=== PATIENT | female | born 1955 | race Caucasian/White ===

== ENCOUNTER 2016-11-18 17:09 | Emergency (ER) | payer OTHER ==
[~2016-11-18] VITALS: Ht 162.6 cm; Wt 102.1 kg
[~2016-11-18 17:09] MED LIST: COZAAR 50MG TAB50 MG PO; HYDROCODONE/ACE1 TA1 PO; LEVOTHYROXINE0.05 MG PO; LOPRESSOR 25MG25 MG PO; MAGNESIUM OXID400 MG PO; METFORMIN HCL500 MG PO; SIMVASTATIN40 MG PO
--- NOTE | 2016-11-18 18:56 | ED GI/GU/ABDOMINAL COMPLAINT ---
History of Present Illness General Chief Complaint: Abdominal Pain/Flank Pain Stated Complaint: ABD PAIN X 1 DAY Source: patient Exam Limitations: no limitations Vital Signs & Intake/Output Vital Signs & Intake/Output Vital Signs Date Time Temp Pulse Resp B/P Pulse O2 O2 Flow FiO2 Ox Delivery Rate 11/188 98.3 74 16 142/74 100 Room Air 11/18 2122 97.2 84 16 136/60 95 Room Air 11/18 1956 98.3 93 16 148/87 100 Room Air 11/18 1851 99 Room Air 11/18 1711 98.3 116 18 154/106 96 Room Air Allergies Coded Allergies: lisinopril (Mild, COUGH 11/18/16) Reconcile Medications HYDROCODONE/ACETAMINOPHEN (Hydrocodon-Acetaminophen 5-325) 1 TAB TAB 1-2 TAB PO Q8P PRN PAIN Levothyroxine Sodium 0.05 MG TAB 1 TAB PO DAILY THYROID (Reported) Losartan (Cozaar) 50 MG TAB 1 TAB PO DAILY BP (Reported) Magnesium Oxide 400 MG TAB 1 TAB PO DAILY SUPPLEMENT (Reported) Metformin Hydrochloride (Metformin HCl) 500 MG TAB 1 TAB PO BID DM (Reported) Metoprolol Tartrate (Lopressor) 25 MG TAB 1 TAB PO BID BP (Reported) Ondansetron HCl (Zofran) 4 MG TABLET 1 ODT PO Q6-8P PRN NAUSEA Oxycodone HCl/Acetaminophen (Percocet 5-325 MG Tablet) 5 MG-325 MG TABLET 1 TAB PO Q4-6 PRN PAIN Simvastatin 40 MG TAB 1 TAB PO QPM CHOLESTEROL (Reported) Triage Note: PT TO TRIAGE WITH C/O CONSTANT UPPER ABDOMINAL PAIN /10 SINCE YESTERDAY. PT DENIES N/V, REPORTS DIARRHEAx1 YESTERDAY. VSS. PT AFEBRILE IN TRIAGE. PT DENIES CHEST PAIN,SOB,URINARY S/S. HX OF PANCREATITIS,DIABETES,HTN,HIGH CHOL. Triage Nurses Notes Reviewed? yes ? N Is pt currently ? No Onset: Gradual Duration: waxing and waning Timing: recent history Quality/Severity: fullness, moderate Severity Numbers: 5 Location: epigastric Radiation: back HPI: Patient is a 61-year-old female with a past medical history of type 2 diabetes, pancreatitis, hyperlipidemia and hypertension who presents emergency room with a 27 hour gradual onset of waxing and waning epigastric pain and abdominal distention. Patient has mild nausea and states that eating and drinking makes epigastric pain worse. Last bowel movement was 2 days ago no blood no melena noted. Patient is status post remote cholecystectomy. Patient has mild ideation to her back and states feelings feel similar to previous pancreatitis. Denies any significant alcohol use Past History Travel History Traveled to [place] past 21 day No Medical History Any Pertinent Medical History? see below for history Cardiovascular: hypertension, hyperlipidemia Gastrointestinal: pancreatitis Endocrine: diabetes History of MRSA: No History of VRE: No History of CDIFF: No Influenza Vaccine: 06/28/13 Surgical History Surgical History: cholecystectomy, Psychosocial History Who do you live with Significant Other Services at Home None What is your primary language Latvian Tobacco Use: Never used Family History Family History, If Any: MOTHER FH: aortic stenosis FH: congestive heart failure FH: CVA (cerebrovascular accident) FATHER FH: CABG (coronary artery bypass surgery) FH: colon cancer DAUGHTER FHx: SVT (supraventricular tachycardia) Hx Contributory? No Review of Systems Review of Systems Constitutional: Reports: no symptoms. EENTM: Reports: no symptoms. Respiratory: Reports: no symptoms. Cardiovascular: Reports: no symptoms. GI: Reports: see HPI, abdominal pain, nausea. Genitourinary: Reports: no symptoms. Musculoskeletal: Reports: no symptoms. Skin: Reports: no symptoms. Neurological/Psychological: Reports: no symptoms. Hematologic/Endocrine: Reports: no symptoms. Immunologic/Allergic: Reports: no symptoms. All Other Systems: Reviewed and Negative Physical Exam Physical Exam General Appearance: comfortable, obese Gastrointestinal: normal bowel sounds, soft, MODERATE EPIGASTRIC POINT TENDERNESS NOTED, MILD RIGHT LOWER QUADRANT POINT TENDERNESS NO PERITONEAL SIGNS NO REBOUND TENDERNESS Comments: HEENT: Normal EENT exam Neck: Supple, no lymphadenopathy, normal range of motion without pain or tenderness Back: Nontender, no CVA tenderness. Cardiovascular: Regular rate and rhythms no murmurs rubs or gallops, normal JVP Respiratory: Chest nontender. No respiratory distress.breath sounds clear to auscultation bilaterally Extremity: No edema, no calf tenderness to palpation, normal and equal pulses. Neuro: Alert oriented x3, motor sensory normal, Skin: No appreciable rash on exposed skin, skin is warm and dry. Psych: Mood and affect is normal, memory and judgment is normal. Core Measures ACS in differential dx? No Severe Sepsis Present: No Septic Shock Present: No Progress Differential Diagnosis: AAA, AMI, appendicitis, biliary colic, bowel obstruction , colon cancer, diverticulitis, endometritis, esophageal varices, gastritis, hepatitis, hernia, hemorrhoids, ischemic bowel, inflamm bowel dis, kidney stone, Lola-Emma tear, ovarian cyst, ovarian torsion, pancreatitis, PID/cervicitis, peptic ulcer, PUD/GERD, perforated viscous, SBO, UTI/pyelo Plan of Care: Orders Procedure Date/time Status DIRECT BILIRUBIN 11/18 1945 Complete PARTIAL THROMBOPLASTIN TIME 11/18 1857 Complete PROTHROMBIN TIME 11/18 1857 Complete LIPASE 11/18 1856 Complete COMPREHENSIVE METABOLIC PANEL 11/18 1856 Complete CBC WITHOUT DIFFERENTIAL 11/18 1856 Complete AMYLASE 11/18 1856 Complete Laboratory Tests 11/18/161945: Anion Gap 12, Estimated GFR > 60, BUN/Creatinine Ratio 18.3, Glucose 141 H, Calcium 9.4, Total Bilirubin 1.8 H, Direct Bilirubin 0.4, AST 27, ALT 37, Alkaline Phosphatase 111, Total Protein 7.6, Albumin 4.1, Globulin 3.5, Albumin/ Globulin Ratio 1.2, Amylase 43, Lipase 68, PT 11.6, INR 1.11, APTT 37, CBC w Diff NO MAN DIFF REQ, RBC 5.11, MCV 92.8, MCH 31.3 H, RDW 13.4, MPV 8.2, Gran % 72.4, Lymphocytes % 19.1 L, Monocytes % 7.4, Eosinophils % 0.8, Basophils % 0.3 , Absolute Granulocytes 8.8 H, Absolute Lymphocytes 2.3, Absolute Monocytes 0.9 H, Absolute Eosinophils 0.1, Absolute Basophils 0, PUBS MCHC 33.7 11/18/161857: Direct Bilirubin Cancelled Patient on this examination was in no apparent distress patient was given IV morphine and IV Zofran with improvement of her symptoms. CT scan currently is pending. CT scan was resulted noting concerns of inflammatory findings around the pancreas however patient's pancreatic enzymes were unremarkable. Patient also had complete resolution of presenting complaints of pain and nausea. Patient was by mouth challenged and could tolerate this. 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 Radiology Impression: SEE COMMENTS Initial ED EKG: none Comments: PATIENT: MEÑO ALMAZAN PRESENT AGE: 61 PATIENT ACCOUNT NO: [id number] : 54 LOCATION: [facility] ORDERING PHYSICIAN: JAI SPAULDING SERVICE DATE: 11/18/16 EXAM TYPE: CAT - CT ABD & PELVIS W IV CONTRAST EXAMINATION: CT ABDOMEN AND PELVIS WITH CONTRAST CLINICAL INFORMATION: Epigastric and right lower quadrant abdominal pain. COMPARISON: CT abdomen and pelvis without contrast 08/17/2014. TECHNIQUE: Multidetector volumetric imaging was performed of the abdomen and pelvis before and after the IV administration of 95 mL of Optiray 320 intravenous contrast. Sagittal and coronal reformatted images were obtained on the technologist's workstation. DLP: 1071 mGy-cm FINDINGS: LUNG BASES: The visualized lung bases are unremarkable. LIVER, GALLBLADDER, AND BILIARY TREE: There is diffuse low-attenuation of the liver parenchyma, indicative of diffuse hepatic steatosis. The liver is otherwise normal in size and contour. Redemonstrated are several cystic lesions within the caudate lobe as well as the left hepatic lobe, measuring approximately 2.1 x 2.2 cm and 0.8 cm respectively; previously, 1.6 x 1.7 cm and 0.7 cm respectively on a prior CT of the abdomen and pelvis dating back to 2013. The gallbladder is surgically absent. No intrahepatic blurry ductal dilatation is identified. There is stable mild prominence of the common bile duct, without visible intraductal stones. PANCREAS: Redemonstrated is mild generalized pancreatic atrophy and fatty infiltration of the pancreas. Of note, there are peripancreatic inflammatory changes surrounding the distal pancreatic body and tail. This could reflect a focal acute pancreatitis. No peripancreatic fluid collections are identified. SPLEEN: Unremarkable. ADRENAL GLANDS: Unremarkable. KIDNEYS AND URETERS: The kidneys are normal in size and enhance symmetrically, without solid parenchymal lesions. Incidental note is made of a 1.2 cm hypoattenuating lesion within the upper pole of the left kidney, favored to represent a small simple renal cortical cyst. No enhancing renal masses are identified. A 5 mm nonobstructing stone is present within the lower pole of the right kidney. No ureteral stones are identified and there is no hydroureteronephrosis of either kidney or renal collecting system. Incidental note is made of several left-sided parapelvic cysts. BLADDER: Unremarkable. GASTROINTESTINAL TRACT: Normal anatomic orientation of the stomach relative to the duodenum. Normal caliber of abdominal and pelvic bowel loops, without evidence of obstruction or ileus. No circumferential bowel wall thickening with surrounding inflammatory changes to suggest an underlying infectious or inflammatory enterocolitis. Normal-appearing appendix within the right lower quadrant of the abdomen. No organizing intra-abdominal fluid collections or free intraperitoneal air. ABDOMINAL WALL: No significant hernia is appreciated. LYMPH NODES: No significant abdominal or pelvic adenopathy. VASCULAR: Patent abdominal vasculature. Normal course and caliber of the abdominal aorta and its branching vessels, without aneurysmal dilatation. Redemonstrated are prominent bilateral gonadal veins. PELVIC VISCERA: Unremarkable. OSSEOUS STRUCTURES: No acute osseous abnormality. No visible destructive osseous lesions. Normal alignment of the imaged thoracolumbar spine. IMPRESSION: 1. Mild peripancreatic inflammatory changes surrounding the distal pancreatic body and tail. This could reflect an acute focal pancreatitis. Correlate with pancreatic enzyme levels. 2. Diffuse hepatic steatosis. 3. Nephrolithiasis of the right kidney. No ureteral or bladder stones and no hydroureteronephrosis of either kidney or renal collecting system. Departure Departure Disposition: HOME OR SELF CARE Condition: Stable Clinical Impression Primary Impression: Abdominal pain Secondary Impressions: Pancreatitis Referrals: GINO ARCHIBALD,MARY Kam (PCP/Family) MARK ARCHIBALD,HIRAM Alexis Additional Instructions: As discussed begin [id number] ibuprofen for pain and inflammation and begin the prescription of Percocet for breakthrough pain relief. Begin a 24- hour clear liquid and bland diet to rest your bowels. Prescription is waiting a [facility] pharmacy. Tomorrow please follow-up with your established registry np Dr. Joyce. If symptoms worsen return to emergency room. Departure Forms: Customer Survey General Discharge Information Prescriptions: Current Visit Scripts Oxycodone HCl/Acetaminophen (Percocet 5-325 MG Tablet) 1 TAB PO Q4-6 PRN PAIN #12 TAB Ondansetron HCl (Zofran) 1 ODT PO Q6-8P PRN NAUSEA #15 TAB
[2016-11-18 20:21] LABS: ABSOLUTE BASOPHIL COUNT 0 /CUMM (0.0-0.2); ABSOLUTE EOSINOPHIL COUNT 0.1 /CUMM (0.0-0.7); ABSOLUTE GRANULOCYTE CT 8.8 /CUMM (1.4-6.5); ABSOLUTE LYMPH COUNT 2.3 /CUMM (1.2-3.4); ABSOLUTE MONOCYTE COUNT 0.9 /CUMM (0.10-0.60); BASOPHIL % 0.3 % (0.0-2.0); EOSINOPHIL % 0.8 % (0-5); GRANULOCYTE % 72.4 % (42.2-75.2); HEMATOCRIT 47.4 % (37-47); MEAN CORPUSCULAR HGB 31.3 PG (27.0-31.0); MEAN CORPUSCULAR HGB CONC 33.7 G/DL (33.0-37.0); MEAN CORPUSCULAR VOLUME 92.8 FL (81.0-99.0); MEAN PLATELET VOLUME 8.2 FL (7.4-10.4); PLATELET COUNT 206 /CUMM (130-400); RBC DISTRIBUTION WIDTH 13.4 % (11.5-14.5); RED BLOOD CELL CT 5.11 /CUMM (4.20-5.40); WHITE BLOOD CELL COUNT 12.1 /CUMM (4.8-10.8)
[2016-11-18 20:31] LABS: PT 11.6 SEC (9.4-12.5); PTT 37 SEC (25-37)
--- NOTE | 2016-11-18 21:27 | CT SCAN REPORT ---
EXAMINATION: CT ABDOMEN AND PELVIS WITH CONTRAST CLINICAL INFORMATION: Epigastric and right lower quadrant abdominal pain. COMPARISON: CT abdomen and pelvis without contrast 08/17/2014. TECHNIQUE: Multidetector volumetric imaging was performed of the abdomen and pelvis before and after the IV administration of 95 mL of Optiray 320 intravenous contrast. Sagittal and coronal reformatted images were obtained on the technologist's workstation. DLP: 1071 mGy-cm FINDINGS: LUNG BASES: The visualized lung bases are unremarkable. LIVER, GALLBLADDER, AND BILIARY TREE: There is diffuse low-attenuation of the liver parenchyma, indicative of diffuse hepatic steatosis. The liver is otherwise normal in size and contour. Redemonstrated are several cystic lesions within the caudate lobe as well as the left hepatic lobe, measuring approximately 2.1 x 2.2 cm and 0.8 cm respectively; previously, 1.6 x 1.7 cm and 0.7 cm respectively on a prior CT of the abdomen and pelvis dating back to 2013. The gallbladder is surgically absent. No intrahepatic blurry ductal dilatation is identified. There is stable mild prominence of the common bile duct, without visible intraductal stones. PANCREAS: Redemonstrated is mild generalized pancreatic atrophy and fatty infiltration of the pancreas. Of note, there are peripancreatic inflammatory changes surrounding the distal pancreatic body and tail. This could reflect a focal acute pancreatitis. No peripancreatic fluid collections are identified. SPLEEN: Unremarkable. ADRENAL GLANDS: Unremarkable. KIDNEYS AND URETERS: The kidneys are normal in size and enhance symmetrically, without solid parenchymal lesions. Incidental note is made of a 1.2 cm hypoattenuating lesion within the upper pole of the left kidney, favored to represent a small simple renal cortical cyst. No enhancing renal masses are identified. A 5 mm nonobstructing stone is present within the lower pole of the right kidney. No ureteral stones are identified and there is no hydroureteronephrosis of either kidney or renal collecting system. Incidental note is made of several left-sided parapelvic cysts. BLADDER: Unremarkable. GASTROINTESTINAL TRACT: Normal anatomic orientation of the stomach relative to the duodenum. Normal caliber of abdominal and pelvic bowel loops, without evidence of obstruction or ileus. No circumferential bowel wall thickening with surrounding inflammatory changes to suggest an underlying infectious or inflammatory enterocolitis. Normal-appearing appendix within the right lower quadrant of the abdomen. No organizing intra-abdominal fluid collections or free intraperitoneal air. ABDOMINAL WALL: No significant hernia is appreciated. LYMPH NODES: No significant abdominal or pelvic adenopathy. VASCULAR: Patent abdominal vasculature. Normal course and caliber of the abdominal aorta and its branching vessels, without aneurysmal dilatation. Redemonstrated are prominent bilateral gonadal veins. PELVIC VISCERA: Unremarkable. OSSEOUS STRUCTURES: No acute osseous abnormality. No visible destructive osseous lesions. Normal alignment of the imaged thoracolumbar spine. IMPRESSION: 1. Mild peripancreatic inflammatory changes surrounding the distal pancreatic body and tail. This could reflect an acute focal pancreatitis. Correlate with pancreatic enzyme levels. 2. Diffuse hepatic steatosis. 3. Nephrolithiasis of the right kidney. No ureteral or bladder stones and no hydroureteronephrosis of either kidney or renal collecting system.
[2016-11-18] MEDS ORDERED: PERCOCET 5-3251 EACH PO (22:00)
[2016-11-18] MEDS ORDERED: ZOFRAN4 M2 PO (22:33)
[2016-11-18 22:48] VITALS: BP 142/74
== END 2016-11-18 22:48 ==
LOC: ERH 17:09
PROVIDERS: Physician Assistant
DX: K85.90 Acute pancreatitis without necrosis or infection, unspecified (principal)
CPT/HCPCS: 74177; 96374; 96375; 96376